=== PATIENT | female | born 1945 | race Caucasian/White ===

== ENCOUNTER 2022-01-10 08:45 | Outpatient (CLI) | payer MEDICARE | END 2022-01-10 08:46 | disposition home or self-care (01) | LOC: PET 08:45 | PROVIDERS: ATTEND Internal Medicine Hematology & Oncology | DX: C79.51 Secondary malignant neoplasm of bone (principal) | CPT/HCPCS: 78815; A9552 ==

== ENCOUNTER 2022-01-11 08:29 | Outpatient (CLI) | payer MEDICARE ==
[2022-01-11] MEDS ORDERED: Iopamidol 370 76% 100 ML VIAL ONE (10:22)
== END 2022-01-11 08:30 | disposition home or self-care (01) ==
LOC: CT 08:29
PROVIDERS: ATTEND Internal Medicine
DX: C79.51 Secondary malignant neoplasm of bone (principal); K46.9 Unspecified abdominal hernia without obstruction or gangrene; K76.89 Other specified diseases of liver; Z85.3 Personal history of malignant neoplasm of breast
CPT/HCPCS: 71270

== ENCOUNTER 2022-01-14 08:32 | Day surgery (SDC) | payer MEDICARE ==
[2022-01-11 14:07] VITALS: BMI 29.9
[2022-01-14 09:31] LABS: INR-International Normal Ratio 1.1; PTT 32.7 sec (22.9-36.1); Prothrombin Time 14.5 sec (12.0-14.7)
[2022-01-14] MEDS ORDERED: Lorazepam 1 MG TAB ONE (09:38)
[2022-01-14] MEDS ORDERED: Sodium Bicarbonate 2.5 MEQ/5 ML VIAL ONE (09:56)
[2022-01-14] MEDS ORDERED: Fentanyl 100 MCG/2 ML VIAL ONE (09:57)
[2022-01-14 11:52] VITALS: BP 122/73; TEMP 97.8
== END 2022-01-14 11:35 | disposition home or self-care (01) ==
LOC: CT 08:32
PROVIDERS: ATTEND Internal Medicine Hematology & Oncology
PROC: 0QB23ZX Excision of Right Pelvic Bone, Percutaneous Approach, Diagnostic (ICD-10-PCS; principal; 2022-01-14)
DX: C79.51 Secondary malignant neoplasm of bone (principal); C50.912 Malignant neoplasm of unspecified site of left female breast; I10 Essential (primary) hypertension; E78.00 Pure hypercholesterolemia, unspecified; Z79.1 Long term (current) use of non-steroidal anti-inflammatories (NSAID); Z79.890 Hormone replacement therapy; Z79.899 Other long term (current) drug therapy
CPT/HCPCS: 20225; 77012; 85610; 85730; 88307; 88311; 88342; J3010

== ENCOUNTER 2022-06-27 08:00 | Outpatient (CLI) | payer MEDICARE | END 2022-06-27 08:01 | disposition home or self-care (01) | LOC: PET 08:00 | PROVIDERS: ATTEND Internal Medicine Hematology & Oncology | DX: C79.51 Secondary malignant neoplasm of bone (principal); Z85.3 Personal history of malignant neoplasm of breast | CPT/HCPCS: 78815; A9552 ==

== ENCOUNTER 2022-11-20 12:30 | Outpatient (CLI) | payer MEDICARE | END 2022-11-20 12:31 | disposition home or self-care (01) | LOC: PET 12:30 | PROVIDERS: ATTEND Internal Medicine Hematology & Oncology | DX: C79.51 Secondary malignant neoplasm of bone (principal); C50.919 Malignant neoplasm of unspecified site of unspecified female breast; Z85.3 Personal history of malignant neoplasm of breast | CPT/HCPCS: 78815; A9552 ==